=== PATIENT | female | born 1930 | race Caucasian/White ===

== ENCOUNTER 2017-11-08 10:58 | Inpatient (IN) ==
[2017-11-08 11:42] LABS: Basophils # 0.1 K/mcL (0.0-0.2); Basophils % 0.3 %; Hematocrit 36.9 % (35.3-44.9); Hemoglobin 12.5 g/dL (11.5-15.4); Immature Granulocytes % 0.6 % (0-4); Lymphocytes # 0.8 K/mcL (0.6-4.6); Lymphocytes % 3.5 %; Mean Corpuscular HGB Conc 33.9 g/dL (31.6-35.5); Mean Corpuscular Hemoglobin 35.6 pg (28.0-33.3); Mean Corpuscular Volume 105.1 fL (83.0-100.0); Mean Platelet Volume 11.5 fL (9.4-12.4); Monocytes % 4.3 %; Platelet Count 200 K/mcL (140-400); Red Blood Count 3.51 M/mcL (3.82-4.97); Red Cell Distribution Width 18.6 % (11.5-14.5); Segmented Neutrophils % 91.3 %
[2017-11-08 11:44] LABS: Monocytes # 0.9 K/mcL (0.0-1.3)
[2017-11-08 11:48] LABS: INR 1.5
[2017-11-08 11:51] LABS: Activated Partial Thrombo Time 29.6 Seconds (26.0-36.0)
[2017-11-08 11:55] LABS: Albumin 2.1 g/dL (3.5-5.7); Albumin/Globulin Ratio 0.8 (1.1-2.2); Calcium 7.3 mg/dL (8.6-10.3); Globulin 2.5 g/dL (2.4-3.5); Total Protein 4.6 g/dL (6.4-8.9)
[2017-11-08 12:24] LABS: Troponin I 1.19 ng/mL (< 0.04)
[2017-11-08] MEDS ORDERED: *HR* Morphine 2 MG/ML SYRINGE IVP PRN (13:04)
[2017-11-08] MEDS ORDERED: 0.9 % Sodium Chloride 1,000 ML IVC SCH (13:04)
[2017-11-08] MEDS ORDERED: Naloxone 0.4 MG/ML INJ IVP PRN ×3 (13:04)
--- NOTE | 2017-11-08 13:16 | Emergency Department Note ---
Disposition Clinical Impression: Colon cancer metastasized to liver Disposition: Admitted As Inpatient Condition: Serious Time of Disposition: 13:14 Altered Mental Status HPI - General Chief Complaint: ED Weakness Stated Complaint: Slurred Speech/Weakness Time Seen by Provider: 11/08/17 11:10 Source: patient, EMS Mode of arrival: EMS Limitations: altered mental status Nursing Notes Reviewed: Yes Vital Signs Reviewed: Yes - History of Present Illness HPI Narrative: 87-year-old female presents via EMS with altered mental status changes. 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 Patient has been declining rapidly over the past couple weeks after stopping oral chemotherapy. Patient was seen on Saturday after a fall. The son went to check on mother this morning Panter with marked decreased responsiveness. Patient has very diffuse and marked decreased responsiveness at this time. Some discussed he would like his mother to be comfort measures only. Did agree upon getting baseline labs. MD complaint: altered mental status, confusion, decreased responsiveness Onset (ago): Just SIPHONER (last seen well last night) Timing confirmed by: family member Consistency of Symptoms: getting worse Context: liver disease Associated symptoms: Reports: weakness - Related Data Home Medications Medication Instructions Recorded Confirmed Multivit-Min/FA/Lycopen/Lutein 1 each PO DAILY 07/19/15 11/03/17 [Centrum Silver Tablet] Omeprazole Magnesium [Prilosec Otc] 20 mg PO DAILY 07/19/15 11/03/17 Ferrous Sulfate [Iron] 325 mg PO DAILY 08/31/15 11/03/17 Pravastatin Sodium [Pravachol] 40 mg PO DAILY 08/31/15 11/03/17 Timolol [Betimol] 1 drop OP QAM 08/31/15 11/03/17 Isosorbide MONOnitrate (24 HR) 30 mg PO DAILY 10/09/15 11/03/17 [Imdur] Losartan Potassium [Cozaar] 25 mg PO BID 10/09/15 11/03/17 Torsemide 20 mg PO DAILY 01/17/17 11/03/17 Potassium Chloride [Klor-Con 10] 10 meq PO DAILY 03/05/17 11/03/17 Previous Rx's Medication Instructions Recorded Capecitabine [Xeloda] 1,000 mg PO BID #56 tablet 09/30/17 Oxycodone HCl 5 mg PO HS PRN 30 Days #30 tablet 10/10/17 Allergies Allergy/AdvReac Type Severity Reaction Status Date / Time Sulfa (Sulfonamide Allergy Rash Verified 11/03/17 12:56 Antibiotics) bacitracin AdvReac Redness of Verified 11/03/17 12:56 [From Neosporin Skin ([id number])] lisinopril AdvReac Cough Verified 11/03/17 12:56 Neomycin AdvReac Redness of Verified 11/03/17 12:56 [From Neosporin Skin ([id number])] polymyxin B AdvReac Redness of Verified 11/03/17 12:56 [From Neosporin Skin ([id number])] Limitations: ROS unobtainable due to patients medical condition Past Medical History - Past Medical History Attestation: Yes The following information was validated with the patient. Source: obtained from family Medical history: Reports: arthritis, cancer, CHF, GERD, glaucoma, hyperlipidemia , hypertension, kidney stones, valvular heart disease, other Surgical history: Reports: appendectomy, cataract, colectomy, hysterectomy, other Psychiatric history: Reports: no psych history [employer] ASSEM[employer]ER history: Reports: no [employer] ASSEMBLER history - Social History Smoking Status: Never smoker Smokeless Tobacco Status: No Alcohol use: Reports: none Drug use: Reports: none Physical Exam - General Limitations: altered mental status General appearance: lethargic - Eye Eye exam: Present: other (inferior orbit ecchymosis bilateral) - ENT ENT exam: mucous membranes dry - Neck Neck exam: Present: normal inspection, full ROM. Absent: lymphadenopathy, thyromegaly - Chest Chest inspection: Present: normal inspection, symmetric chest wall rise - Respiratory Respiratory exam: Present: normal lung sounds bilaterally. Absent: respiratory distress - Cardiovascular Cardiovascular exam: Present: regular rate, normal rhythm, systolic murmur - Abdominal Exam Abdominal exam: Present: distention, diminished bowel sounds, organomegaly - Rectal Exam Rectal exam: Present: other (Prolapsed rectum) - Female External Exam: Present: other (Prolapsed bladder.) - Extremities Exam Extremities exam: Present: pedal edema (1+B/L) - Expanded Neurological Exam Patient oriented to: Present: person. Absent: place, time Coma Scale Eye Opening: Spontaneous Coma Scale Motor Response: Withdraws to Pain Coma Scale Verbal Response: Confused Coma Scale Total: 12 - Skin Skin exam: Present: warm, dry, intact, normal color Course Course Narrative: Had a long discussion with son who has power of contract attorney and he and family have agreed to make patient comfort measures only. Patient has been declining rapidly since stopping chemotherapy for stage IV metastatic colon cancer. Family understands patient is likely septic and that will not likely improve without intervention with antibiotics. At this time they would like to keep patient comfortable and intervene any further. Patient will be admitted to the floor for comfort measures only. Vital Signs Temperature 99.4 F 11/08/17 11:09 Pulse Rate 108 11/08/17 11:09 Respiratory Rate 24 11/08/17 11:09 Blood Pressure 79/52 11/08/17 11:09 O2 Sat by Pulse Oximetry 92 11/08/17 11:09 Temperature 99.4 F 11/08/17 11:09 Pulse Rate 104 11/08/17 12:30 Respiratory Rate 20 11/08/17 12:55 Blood Pressure 52/36 11/08/17 12:55 O2 Sat by Pulse Oximetry 100 11/08/17 12:30 Oxygen Delivery Oxygen Delivery Nasal Cannula Altered Mental Status - Differential Diagnosis Likely: altered mental status, delirium, sepsis - Lab Data Lab results reviewed: Yes I reviewed the patient's lab results. Lab results narrative: Patient with elevated white count 21,000. Patient with worsening renal insufficiency. Patient's lactic acid level elevated. Results discussed with family his discuss the patient likely septic. Result diagrams: 11/08/17 11:36 11/08/17 11:36 Lab Results 11/08/17 11/08/17 11/08/17 Range/Units 11:36 11:36 11:36 WBC 21.9 H D (4.3-11.1) K/mcL RBC 3.51 L (3.82-4.97) M/mcL Hgb 12.5 D (11.5-15.4) g/dL Hct 36.9 (35.3-44.9) % MCV 105.1 H (83.0-100.0) fL MCH 35.6 H (28.0-33.3) pg MCHC 33.9 (31.6-35.5) g/dL RDW 18.6 H (11.5-14.5) % Plt Count 200 (140-400) K/mcL MPV 11.5 (9.4-12.4) fL Immature Gran % 0.6 (0-4) % Seg Neutrophils % 91.3 % Lymphocytes % 3.5 % Monocytes % 4.3 % Eosinophils % 0.0 % Basophils % 0.3 % Neutrophils # 20.0 H (1.6-8.9) K/mcL Lymphocytes # 0.8 (0.6-4.6) K/mcL Monocytes # 0.9 (0.0-1.3) K/mcL Eosinophils # 0.0 (0.0-0.6) K/mcL Basophils # 0.1 (0.0-0.2) K/mcL PT 16.0 H (9.4-12.1) Seconds INR 1.5 APTT 29.6 (26.0-36.0) Seconds Sodium 135 L (136-145) mEq/L Potassium 5.0 (3.5-5.1) mEq/L Chloride 106 (98-107) mEq/L Carbon Dioxide 18 L (23-29) mEq/L BUN 46 H (8-23) mg/dL Creatinine 2.20 H (0.60-1.20) mg/dL Est GFR ( Amer) 25 L (> 60) Est GFR (Non-Af Amer) 21 L (> 60) BUN/Creatinine Ratio 21 (6-26) Glucose 87 (70-105) mg/dL Calculated Osmolality 291 (280-300) Lactic Acid (0.5-2.2) mmol/L Calcium 7.3 L (8.6-10.3) mg/dL Total Bilirubin 1.0 (0.3-1.0) mg/dL AST 196 H (13-39) Units/L ALT 41 (7-52) Units/L Alkaline Phosphatase 617 H (34-104) Units/L Ammonia (16-53) mcmol/L Creatine Kinase 109 (30-223) Units/L Troponin I 1.19 H* (< 0.04) ng/mL Serum Total Protein 4.6 L (6.4-8.9) g/dL Albumin 2.1 L (3.5-5.7) g/dL Globulin 2.5 (2.4-3.5) g/dL Albumin/Globulin Ratio 0.8 L (1.1-2.2) 11/08/17 11/08/17 Range/Units 11:36 11:36 WBC (4.3-11.1) K/mcL RBC (3.82-4.97) M/mcL Hgb (11.5-15.4) g/dL Hct (35.3-44.9) % MCV (83.0-100.0) fL MCH (28.0-33.3) pg MCHC (31.6-35.5) g/dL RDW (11.5-14.5) % Plt Count (140-400) K/mcL MPV (9.4-12.4) fL Immature Gran % (0-4) % Seg Neutrophils % % Lymphocytes % % Monocytes % % Eosinophils % % Basophils % % Neutrophils # (1.6-8.9) K/mcL Lymphocytes # (0.6-4.6) K/mcL Monocytes # (0.0-1.3) K/mcL Eosinophils # (0.0-0.6) K/mcL Basophils # (0.0-0.2) K/mcL PT (9.4-12.1) Seconds INR APTT (26.0-36.0) Seconds Sodium (136-145) mEq/L Potassium (3.5-5.1) mEq/L Chloride (98-107) mEq/L Carbon Dioxide (23-29) mEq/L BUN (8-23) mg/dL Creatinine (0.60-1.20) mg/dL Est GFR ( Amer) (> 60) Est GFR (Non-Af Amer) (> 60) BUN/Creatinine Ratio (6-26) Glucose (70-105) mg/dL Calculated Osmolality (280-300) Lactic Acid 2.7 H (0.5-2.2) mmol/L Calcium (8.6-10.3) mg/dL Total Bilirubin (0.3-1.0) mg/dL AST (13-39) Units/L ALT (7-52) Units/L Alkaline Phosphatase (34-104) Units/L Ammonia 43 (16-53) mcmol/L Creatine Kinase (30-223) Units/L Troponin I (< 0.04) ng/mL Serum Total Protein (6.4-8.9) g/dL Albumin (3.5-5.7) g/dL Globulin (2.4-3.5) g/dL Albumin/Globulin Ratio (1.1-2.2) - Radiology Data Radiology results reviewed: Yes I reviewed the patient's radiology results. Patient's CT of the head shows no acute abnormalities. Results discussed with family. - EKG Data EKG attestation: Yes I reviewed and interpreted this EKG. EKG results narrative: Patient patient EKG was not adequate for interpretation secondary patient's breathing unable to get adequate EKG TPA Checklist - LKW: 3-4.5 hrs Add. Warnings/Precautions Patient/family understanding: The patient/family members have been counseled and understood the risk, benefit , and alternatives of treatment.
--- NOTE | 2017-11-08 14:33 | Internal Med History&Physical ---
Date of Encounter: 11/08/17 Time of Encounter: 14:31 Assessment and Plan (1) Colon cancer Current visit: Yes Status: Chronic Patient rec'd in ED with hypotension and lethargy. Patient has a history of advanced colon CA and has had a debilitative decline over the last several weeks. Family wishes are for comfort measures only. Qualifiers: Colon location: hepatic flexure Qualified Code(s): C18.3 - Malignant neoplasm of hepatic flexure Internal Medicine - H&P: HPI Chief complaint: hypotension Admitted From: Home Plans for Post Hospital Care: Home History of present illness: Ms. Love is a 87 year old female, who presents via EMS with altered mental status changes. 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 Patient has been declining rapidly over the past couple weeks after stopping oral chemotherapy. Patient was seen on Saturday after a fall. The son went to check on mother this morning and found her with marked decreased responsiveness. Patient has hypotension with SBP 60-70 and marked decreased responsiveness at this time. Some discussed he would like his mother to be comfort measures only. Past Med Surg Social Fam HX - Past Medical History Medical history: arthritis, cancer, CHF, GERD, glaucoma, hyperlipidemia, hypertension, kidney stones, valvular heart disease, other Additional medical history: COLON CANCER, LIVER CANCER Psychiatric history: no psych history - Past Surgical History Surgical History: appendectomy, cataract, colectomy, hysterectomy, other Additional surgical history: liver mass bx,egd,colonoscopy,tonsils - Social History Smoking Status: Never smoker Smokeless Tobacco Status: No Alcohol use: none Drug use: none - Family History Father Adopted: No Living Status: Hx Family Cardiac Disorders: Yes Internal Medicine - H&P: Meds Multivit-Min/FA/Lycopen/Lutein [Centrum Silver Tablet] 1 each PO DAILY 07/19/15 [History] Omeprazole Magnesium [Prilosec Otc] 20 mg PO DAILY 07/19/15 [History] Ferrous Sulfate [Iron] 325 mg PO DAILY 08/31/15 [History] Pravastatin Sodium [Pravachol] 40 mg PO DAILY 08/31/15 [History] Timolol [Betimol] 1 drop OP QAM 08/31/15 [History] Isosorbide MONOnitrate (24 HR) [Imdur] 30 mg PO DAILY 10/09/15 [History] Losartan Potassium [Cozaar] 25 mg PO BID 10/09/15 [History] Torsemide 20 mg PO DAILY 01/17/17 [History] Potassium Chloride [Klor-Con 10] 10 meq PO DAILY 03/05/17 [History] Capecitabine [Xeloda] 1,000 mg PO BID #56 tablet 09/30/17 [Rx] Oxycodone HCl 5 mg PO HS PRN 30 Days #30 tablet 10/10/17 [Rx] 3 Allergy/AdvReac Type Severity Reaction Status Date / Time Sulfa (Sulfonamide Allergy Rash Verified 11/03/17 12:56 Antibiotics) bacitracin AdvReac Redness of Verified 11/03/17 12:56 [From Neosporin Skin ([id number])] lisinopril AdvReac Cough Verified 11/03/17 12:56 Neomycin AdvReac Redness of Verified 11/03/17 12:56 [From Neosporin Skin ([id number])] polymyxin B AdvReac Redness of Verified 11/03/17 12:56 [From Neosporin Skin ([id number])] All Systems PM: A 10-system review of systems was performed and is negative for pertinent findings except as documented above in the HPI. - Constitutional Constitutional: as per HPI, no chills, no fever(s), no night sweats - EENT Eyes: no change in vision, no discharge, no pain, no photophobia Ears: no ear discharge, no ear pain, no tinnitus Nose, mouth and throat: no dysphagia, no nasal discharge, no neck pain, no sore throat - Cardiovascular Cardiovascular ROS IM: as per HPI, no chest pain, no diaphoresis, no dyspnea, no lightheadedness, no palpitations, no syncope - Respiratory Respiratory: as per HPI, no cough, no dyspnea, no wheezing, no excessive phlegm production - Gastrointestinal Gastrointestinal: no abdominal pain, no diarrhea, no hematemesis, no hematochezia, no melena, no nausea, no vomiting - Genitourinary Genitourinary: no change in urinary stream, no dysuria, no flank pain, no hematuria - Musculoskeletal Musculoskeletal ROS IM: no numbness, no tingling - Integumentary Integumentary IM: no rash, no unusual bruising - Neurological Neurological ROS: no confusion, no convulsions, no focal weakness, no numbness, no tingling, no tremor(s) - Hematologic/Lymphatic Hematologic/Lymphatic: no easy bruising - Constitutional Vitals: Temp Pulse Resp BP Pulse Ox 99.4 F 104 20 52/36 100 11/08/17 11:09 11/08/17 12:30 11/08/17 12:55 11/08/17 12:55 11/08/17 12:30 Exam: Patient is lethargic and with limited exam. - Head Head exam: Present: atraumatic, normocephalic - Eye Eye exam: Present: PERRL, conjuntiva pink, sclera anicteric Pupils: Present: PERRL - Neck Neck exam general surgery: Present: supple, trachea midline. Absent: lymphadenopathy - Respiratory Respiratory exam: Present: CTAB. Absent: accessory muscle use, rales, rhonchi, wheezes - Cardiovascular Cardiovascular exam: Present: RRR, +S1, +S2. Absent: diastolic murmur, gallop, rubs, systolic murmur - GI/Abdominal GI/Abdominal exam: Present: normal bowel sounds, soft, no peritoneal signs. Absent: distended, tenderness - Extremities Exam Extremities exam: Present: warm, radial pulses palpable and symmetrical. Absent : calf tenderness, cyanotic, pedal edema - Neurological Exam Neurological exam: Present: CN II-XII intact, oriented X3, no focal deficits. Absent: pronater drift, facial droop, speech deficit - Skin Skin exam: Present: dry, intact Internal Med - H&P Results - Labs CBC & Chem 7: 11/08/17 11:36 11/08/17 11:36 - VTE Reasons for not Prescribing Prophylaxis: Refused by patient
[2017-11-08] MEDS ORDERED: *HR* LORazepam 0.5 MG TABLET PO PRN (16:12)
[2017-11-08] MEDS: 0.9 % Sodium Chloride 1,000 ML IVC SCH (16:56)
--- NOTE | 2017-11-08 18:11 | Electrocardiograph Report ---
[address] [place] [address] Test Date: 2017-11-08 Pat Name: Cathy Love Department: 2000 Room: 113 Gender: F Resource Efficiency Manager: : [id number] Requested By: April Dee Order Number: [id number] Reading MD: Jb Chambers Measurements Intervals [place] Rate: 107 P: 56 MD: 136 QRS: -57 QRSD: 132 T: 167 QT: 363 QTc: 426 Interpretive Statements SINUS TACHYCARDIA INTRAVENTRICULAR CONDUCTION DELAY INFERIOR MYOCARDIAL INFARCTION, PROBABLY OLD ANTEROSEPTAL MYOCARDIAL INFARCTION, PROBABLY OLD Electronically Signed On 11-08-2017 18:10:04 EDT by bJ Chambers
[2017-11-08] MEDS ORDERED: *HR* LORazepam 2 MG/ML VIAL IVP PRN (19:56)
[2017-11-08] MEDS: *HR* LORazepam 2 MG/ML VIAL IVP SCH (21:49)
[2017-11-08] MEDS: *HR* Morphine 2 MG/ML SYRINGE IVP SCH ×3 (21:49→23:40)
[2017-11-09] MEDS: *HR* Morphine 2 MG/ML SYRINGE IVP SCH ×11 (01:04→12:09)
[2017-11-09] MEDS: *HR* LORazepam 2 MG/ML VIAL IVP SCH ×8 (01:04→21:45)
[2017-11-09] MEDS ORDERED: Furosemide 40 MG/4 ML VIAL IVP ONE (03:18)
[2017-11-09] MEDS: 0.9 % Sodium Chloride 1,000 ML IVC SCH (03:21)
[2017-11-09] MEDS ORDERED: 0.9 % Sodium Chloride 1,000 ML IVC SCH (11:22)
[2017-11-09] MEDS: *HR* Morphine 2 MG/ML SYRINGE IVP PRN ×2 (15:38→18:56)
--- NOTE | 2017-11-09 16:17 | Internal Med Progress Note ---
Date of Encounter: 11/09/17 Time of Encounter: 16:14 - Assessment and plan (1) Colon cancer Current Visit: Yes Status: Chronic Assessment and plan: Apparently, metastatic. The patient is to be DNR, comfort care only. Discussed at length with family (sons and daughter, [id number]). We will keep vein open with fluids at 25 mL per hour. This is for access in ease of comfort medications, only. Should access or fluids be a problem, will change to heparin well. If patient stays alive over weekend, will consider transfer to F, hospice. Qualifiers: Colon location: hepatic flexure Qualified Code(s): C18.3 - Malignant neoplasm of hepatic flexure (2) Facial contusion Current Visit: No Status: Acute Assessment and plan: From fall, apparently a week ago. No new injuries known. Qualifiers: Encounter type: subsequent encounter Qualified Code(s): S00.83XD - Contusion of other part of head, subsequent encounter (3) Chronic systolic heart failure Current Visit: No Status: Chronic Assessment and plan: No current signs or symptoms. (4) Severe aortic stenosis Current Visit: No Status: Chronic Assessment and plan: Heart sounds are distant and not currently is sounding like aortic stenosis but this is from history. - Subjective Interval history: Patient barely opens her eyes to verbal stimuli. She also is aware of conversation, in the room. No verbal or purposeful response. - Constitutional Vitals: Temp Pulse Resp BP Pulse Ox 97.6 F 81 12 83/49 95 11/09/17 07:39 11/09/17 07:39 11/09/17 07:39 11/09/17 07:39 11/09/17 07:39 Exam: Examination: (Except as mentioned above): General: In no apparent distress. Orientation is not known. Nondiaphoretic. Head: Atraumatic and normocephalic. Respiratory: No use of accessory muscles. Lungs are clear throughout. Normal airflow. Cardiovascular: Regular rate and rhythm without murmur appreciated. Abdomen: Bowel sounds are normal. No hepatosplenomegaly mass or tenderness appreciated. Extremities: No cyanosis or clubbing but has 2-3+ bilateral ankle and calf edema. Skin: Warm and non-diaphoretic with no new lesions noted. Internal Medicine: Result - Labs CBC & Chem 7: 11/08/17 11:36 11/08/17 11:36 - ABG Interpretation ABG results: PT/INR, D-dimer PT 16.0 Seconds (9.4-12.1) H 11/08/17 11:36 - VTE Reasons for not Prescribing Prophylaxis: Refused by patient Consult Discharge Plan - Plan Referrals: Gama Olguin, GOVERNMENT AFFAIRS SPECIALIST [Primary Care Provider] -
[2017-11-10] MEDS: *HR* Morphine 2 MG/ML SYRINGE IVP PRN ×4 (00:16→23:26)
[2017-11-10] MEDS: *HR* LORazepam 2 MG/ML VIAL IVP SCH ×6 (00:16→18:39)
--- NOTE | 2017-11-10 15:00 | Internal Med Progress Note ---
Date of Encounter: 11/10/17 Time of Encounter: 14:57 - Assessment and plan (1) Colon cancer Current Visit: Yes Status: Chronic Assessment and plan: Metastatic to liver; shows end-of-life signs by peripheral cyanotic changes. Plan is ECF if lives until tomorrow. Qualifiers: Colon location: hepatic flexure Qualified Code(s): C18.3 - Malignant neoplasm of hepatic flexure (2) Facial contusion Current Visit: No Status: Acute Assessment and plan: From fall, apparently a week ago. No new injuries known. Qualifiers: Encounter type: subsequent encounter Qualified Code(s): S00.83XD - Contusion of other part of head, subsequent encounter (3) Chronic systolic heart failure Current Visit: No Status: Chronic Assessment and plan: No current signs or symptoms. (4) Severe aortic stenosis Current Visit: No Status: Chronic Assessment and plan: Heart sounds are distant and not currently is sounding like aortic stenosis but this is from history. - Subjective Interval history: Patient barely opens her eyes to tactile stimuli. No change, otherwise. This is confirmed by family and by nursing. Discussed with all of them about the morphine and Ativan being when necessary. - Constitutional Vitals: Temp Pulse Resp BP Pulse Ox 99.0 F 102 12 80/49 98 11/10/17 11:14 11/10/17 11:14 11/10/17 11:14 11/10/17 11:14 11/10/17 11:14 Exam: Examination: (Except as mentioned above): General: In no apparent distress. Nondiaphoretic. Vital signs changes, as noted. Head: Atraumatic and normocephalic. Respiratory: No use of accessory muscles. Lungs are clear throughout. Normal airflow. Cardiovascular: Regular rate and rhythm without murmur appreciated. Abdomen: Bowel sounds are normal. No hepatosplenomegaly mass or tenderness appreciated, but may have some response to abdominal exam, certainly not definite. Nonlocalized. Extremities: No clubbing, but does exhibit cyanosis at fingers and toes. Still has 2-3+ ankle and calf edema, unchanged. No cord or calf tenderness. Skin: Warm and non-diaphoretic with no new lesions noted. Internal Medicine: Result - Labs CBC & Chem 7: 11/08/17 11:36 11/08/17 11:36 - ABG Interpretation ABG results: PT/INR, D-dimer PT 16.0 Seconds (9.4-12.1) H 11/08/17 11:36 - VTE Reasons for not Prescribing Prophylaxis: Refused by patient Consult Discharge Plan - Plan Referrals: Gama Olguin, SHINE WORKER [Primary Care Provider] -
[2017-11-10] MEDS: *HR* LORazepam 2 MG/ML VIAL IVP PRN (23:25)
--- NOTE | 2017-11-11 10:59 | Internal Med Progress Note ---
Date of Encounter: 11/11/17 Time of Encounter: 10:56 - Assessment and plan (1) Colon cancer Current Visit: Yes Status: Chronic Assessment and plan: Metastatic to liver; she still shows end-of-life signs by peripheral cyanotic changes. Plan is ECF as above. Will change IV to heparin well and she seems to have fluid and lung exam is making no urine output. Qualifiers: Colon location: hepatic flexure Qualified Code(s): C18.3 - Malignant neoplasm of hepatic flexure (2) Facial contusion Current Visit: No Status: Inactive Qualifiers: Encounter type: subsequent encounter Qualified Code(s): S00.83XD - Contusion of other part of head, subsequent encounter (3) Chronic systolic heart failure Current Visit: No Status: Chronic (4) Severe aortic stenosis Current Visit: No Status: Chronic - Subjective Interval history: Patient no longer opens her eyes to tactile stimuli. She is mottled peripherally and totally unresponsive. Her respirations are agonal at times and other times regular. Discussed with psych social worker and family that we will keep her until tomorrow and ECF transfer is planned if she persists. - Constitutional Vitals: Temp Pulse Resp BP Pulse Ox 99.1 F 59 14 81/47 100 11/11/17 08:03 11/11/17 08:03 11/11/17 08:03 11/11/17 08:03 11/10/17 19:09 Exam: Examination: (Except as mentioned above): General: In no apparent distress. Alert and oriented 3. Nondiaphoretic. Head: Atraumatic and normocephalic. Respiratory: No use of accessory muscles. Lungs are remarkable for rales at bases. It seems that she has adequate airflow. Oxygen is intraoral. Cardiovascular: Regular rate and rhythm without murmur appreciated. Abdomen: Bowel sounds are normal. No hepatosplenomegaly mass or tenderness appreciated. Obese and therefore difficult to palpate deeply. Extremities: Still has cyanosis, as above. She is mottled peripherally. Upper extremities are warm but lower extremities are cold. Less ankle edema than before. Skin: Warm and non-diaphoretic with no new lesions noted. Internal Medicine: Result - Labs CBC & Chem 7: 11/08/17 11:36 11/08/17 11:36 - ABG Interpretation ABG results: PT/INR, D-dimer PT 16.0 Seconds (9.4-12.1) H 11/08/17 11:36 - VTE Reasons for not Prescribing Prophylaxis: Refused by patient Consult Discharge Plan - Plan Referrals: Gama Olguin, BAG MACHINE SET UP OPERATOR [Primary Care Provider] -
[2017-11-11] MEDS: *HR* LORazepam 2 MG/ML VIAL IVP PRN (14:15)
[2017-11-11] MEDS: *HR* Morphine 2 MG/ML SYRINGE IVP PRN (14:51)
[2017-11-11 16:48] VITALS: BP 106/67
--- NOTE | 2017-11-11 20:21 | Emergency Department Note ---
START Narrative - START START: I was called to the bedside to evaluate the patient for end-of-life assessment. It was felt by the family and nurse that the patient had stopped breathing. I examined the patient and found no spontaneous respirations and could hear no cardiac activity on auscultation and could feel no pulse on palpation. Patient' s eyes were partly open. Pupils were nonreactive. I felt the patient had and pronounced the patient at 20:10 PM in the presence of family and nursing.
--- NOTE | 2017-11-12 08:40 | Discharge Summary ---
Date of Encounter: 11/11/17 Time of Encounter: 20:00 - Discharge Diagnosis (1) Colon cancer Priority: Primary Status: Chronic Qualifiers: Colon location: hepatic flexure Qualified Code(s): C18.3 - Malignant neoplasm of hepatic flexure (2) Chronic systolic heart failure Priority: Secondary Status: Chronic (3) Severe aortic stenosis Priority: Secondary Status: Chronic Hospital course: Ms. Love is a 87 year old female who has a known history of colon cancer, metastatic to liver. She was admitted through the emergency room with abdominal pain and failure to thrive. She was felt to have urinary tract infection with elevated white count. She was felt to be in pre-terminal status and family wished that she be kept comfortable. She was DNR CC and was kept comfortable with morphine and Ativan. She on the third hospital day before she could be admitted to the [facility]. It should be noted that she did not make urinary output and that her heart failure seem to worsen with time. However, her renal failure was of uncertain etiology and progressed with an area, as above. She also had peripheral cyanosis indicating a premorbid state. Exam is as described in the progress notes. Discharge discussed with: social work - Time Spent with Patient Total time spent providing and/or coordinating discharge services: - Discharge Medications Home Medications: Multivit-Min/FA/Lycopen/Lutein [Centrum Silver Tablet] 1 each PO DAILY 07/19/15 [History] Omeprazole Magnesium [Prilosec Otc] 20 mg PO DAILY 07/19/15 [History] Ferrous Sulfate [Iron] 325 mg PO DAILY 08/31/15 [History] Pravastatin Sodium [Pravachol] 40 mg PO DAILY 08/31/15 [History] Timolol [Betimol] 1 drop OP QAM 08/31/15 [History] Isosorbide MONOnitrate (24 HR) [Imdur] 30 mg PO DAILY 10/09/15 [History] Losartan Potassium [Cozaar] 25 mg PO BID 10/09/15 [History] Torsemide 20 mg PO DAILY 01/17/17 [History] Potassium Chloride [Klor-Con 10] 10 meq PO DAILY 03/05/17 [History] Capecitabine [Xeloda] 1,000 mg PO BID #56 tablet 09/30/17 [Rx] Oxycodone HCl 5 mg PO HS PRN 30 Days #30 tablet 10/10/17 [Rx] Allergies/Adverse Reactions: 3 Allergy/AdvReac Type Severity Reaction Status Date / Time Sulfa (Sulfonamide Allergy Rash Verified 11/03/17 12:56 Antibiotics) bacitracin AdvReac Redness of Verified 11/03/17 12:56 [From Neosporin Skin ([id number])] lisinopril AdvReac Cough Verified 11/03/17 12:56 Neomycin AdvReac Redness of Verified 11/03/17 12:56 [From Neosporin Skin ([id number])] polymyxin B AdvReac Redness of Verified 11/03/17 12:56 [From Neosporin Skin ([id number])] Date of admission: 11/09/17 12:04 Primary care physician: Gama Olguin CNP - Constitutional Vitals: Temp Pulse Resp BP Pulse Ox 98.9 F 81 19 106/67 100 11/11/17 16:46 11/11/17 16:46 11/11/17 16:46 11/11/17 16:46 11/10/17 19:09 - Patient Status Disposition: - Discharge Instructions Follow Up With: Gama Olguin CNP [Primary Care Provider] - Forms: ED Satisfaction Letter - VTE Reasons for not Prescribing Prophylaxis: Refused by patient
== END 2017-11-11 22:36 | disposition expired | DRG 375 ==
LOC: INPGRE 10:58 → EMEROOGRE 10:58 → INPGRE 13:00
PROVIDERS: ADMIT Internal Medicine; ATTEND Internal Medicine